=== PATIENT | female | born 1940 | race Caucasian/White ===

== ENCOUNTER → 2020-01-18 14:36 | Outpatient (BNVA) | payer MEDICARE, SELFPAY | PROVIDERS: Family Provider Internal Medicine; PCP Internal Medicine; Visit Provider Nurse Practitioner Family | DX: R09.81 Nasal congestion (principal); R50.9 Fever, unspecified; R53.83 Other fatigue; Z11.59 Encounter for screening for other viral diseases | CPT/HCPCS: 87635 ==

== ENCOUNTER 2021-07-03 13:23 | Emergency (ER) | payer MEDICARE, SELFPAY ==
[2021-07-03 14:12] VITALS: BP 152/83; PULSE 87; RESP 18; TEMP 37.1; O2SAT 99; BMI 21.7
--- NOTE | 2021-07-03 14:20 | US_ITS ---
WS: [id number] RIGHT UPPER QUADRANT ULTRASOUND HISTORY: pain COMPARISON: None available. Liver: 12.9 cm in length. Normal size liver. No bile duct dilatation or mass. Portal Vein: Normal hepatopetal flow with monophasic waveform. Gallbladder: Well distended gallbladder. There is an echogenic focus adherent to the gallbladder wall measuring 1.3 cm. There is no shadowing and this focus does not move with patient positioning. CBD: 0.5 cm Pancreas: Normal size and echogenicity. Right kidney: 8.7 cm in length. Normal size and echogenicity. No hydronephrosis or mass. Aorta and IVC: Unremarkable abdominal aorta and IVC. No ascites. US/US gall bladder 80713 IMPRESSION: 1. Echogenic focus within the gallbladder lumen adherent to the wall measures 1.3 cm. Differential includes gallbladder polyp and gallstone adherent to the w all. As there is no shadowing this is probably a polyp. Due to its large size s hort-term ultrasound follow-up in 3-4 months versus surgical removal should be considered. 2. No bile duct dilatation.
--- NOTE | 2021-07-03 14:21 | W.ED.ABDPA2 ---
HPI - Abdominal Pain General: Chief Complaint: Abdominal Pain Stated Complaint: Gallbalder Pain History of Present Illness: HPI narrative: Patient seen by Dr. Causey at urgent care this morning and was sent over for lab work and a gallbladder ultrasound due to right upper quadrant pain and diarrhea patient no acute distress.. He has a history of gallbladder stones. Patient's been having diarrhea for the last couple weeks at least. Had multiple bouts yesterday. PFSH ED PFSH: Medical History (Updated 07/03/21 @ 13:11 by Milan Causey MD) Chronic diarrhea History of gallstones RUQ abdominal pain Social History Smoking and tobacco status: former smoker Alcohol intake: never Course Vital Signs: Vital signs: Vital Signs Temperature 98.7 F 07/03/21 14:12 Pulse Rate 87 07/03/21 14:12 Respiratory Rate 18 07/03/21 14:12 Blood Pressure 152/83 07/03/21 14:12 Pulse Oximetry 99 07/03/21 14:12 Coding Level of Care Code ED Equipment Processer Storage for Giorgio Bragg
[2021-07-03 15:21] LABS: Basophils % 0.3 %; Eosinophils % 0.4 %; Hematocrit 47.4 % (37.0-47.0); Hemoglobin 15.1 g/dL (11.5-15.3); Lymphocytes # 0.9 10^3/uL (0.8-4.8); Lymphocytes % 11.7 %; Mean Corpuscular HGB Conc 31.9 g/dL (30.0-36.0); Mean Corpuscular Hemoglobin 29.5 pg (28.0-34.0); Mean Corpuscular Volume 92.8 fl (81-99); Mean Platelet Volume 12.5 fL (7.4-10.4); Monocytes # 0.9 10^3/uL (0.2-0.9); Monocytes % 11.2 %; Neutrophils # 5.84 10^3/uL (1.8-7.7); Neutrophils % 76.3 %; Nucleated Red Blood Cells % 0 %; Platelet Count 207 10^3/cmm (130-400); Red Blood Count 5.11 10^6/uL (4.1-5.3); Red Cell Distribution Width 11.9 % (12.1-15.1); White Blood Count 7.7 10^3/uL (4.0-10.0)
[2021-07-03 15:38] LABS: Alanine Aminotransferase 12 U/L (0-33); Alkaline Phosphatase 96 IU/L (35-105); Anion Gap 15.9 (5-19); Aspartate Amino Transferase 19 U/L (0-32); Blood Urea Nitrogen 16 mg/dL (8-23); Carbon Dioxide 25 mmol/L (22-29); Chloride 100 mmol/L (98-107); Creatinine Clr Calc Pharmacy 43.8681; Globulin 3.1 g/dL (1.3-4.6); Glucose 103 mg/dL (65-115); Osmolality Calculated 285 mOsm/kg (285-295); Potassium 3.9 mmol/L (3.5-5.1); Sodium 137 mmol/L (136-145); Total Bilirubin 0.7 mg/dL (0.15-1.2); Total Protein 7.1 g/dL (6.6-8.7)
--- NOTE | 2021-07-04 10:48 | DCPLANNER ---
Addendum entered by Padmini Esteves 07/11/21 12:52: Patient had a follow up appointment scheduled with general surgery on 07.08.21 - patient did attend appointment. Original Note: global account manager had message to schedule a follow up appointment for patient with general surgery. global account manager emailed patients information to Malka Lyle and Yojana at [facility] General Surgery. Patients information will be printed and reviewed. Clinic will call patient with appointment information.
== END 2021-07-03 15:21 ==
PROVIDERS: Nurse Practitioner Family; Emergency Provider Family Medicine; PCP Internal Medicine
DX: R10.11 Right upper quadrant pain (principal); Z53.21 Procedure and treatment not carried out due to patient leaving prior to being seen by health care provider; Z87.19 Personal history of other diseases of the digestive system; Z87.891 Personal history of nicotine dependence
CPT/HCPCS: 36415; 76705; 80053; 85025; 99282

== ENCOUNTER → 2021-07-08 10:01 | Outpatient (BNVA) | payer MEDICARE, SELFPAY | PROVIDERS: PCP Internal Medicine; Referring Provider Nurse Practitioner Family; Visit Provider Surgery | DX: Z20.822 Contact with and (suspected) exposure to COVID-19 (principal) | CPT/HCPCS: 87635 ==

== ENCOUNTER 2021-07-10 11:19 | Outpatient (CLI) | payer MEDICARE, SELFPAY | END 2021-07-10 11:20 | disposition home or self-care (01) | LOC: LAB 11:23 | PROVIDERS: Visit Provider Surgery | DX: K52.9 Noninfective gastroenteritis and colitis, unspecified (principal) | CPT/HCPCS: 83630; 87177; 87209; 87493; 87506 ==

== ENCOUNTER → 2021-08-19 09:36 | Outpatient (BNVA) | payer MEDICARE, SELFPAY | PROVIDERS: Visit Provider Surgery | DX: R10.11 Right upper quadrant pain (principal); Z20.822 Contact with and (suspected) exposure to COVID-19 | CPT/HCPCS: 87635 ==

== ENCOUNTER 2021-08-22 05:58 | Day surgery (SDC) | payer MEDICARE, SELFPAY ==
[2021-08-21 09:51] VITALS: BMI 19.2
[2021-08-22] VITALS (8 sets, daily range): BP systolic 123–182; BP diastolic 62–83; PULSE 60–87; RESP 16–18; TEMP 36.2–36.5; O2SAT 98–100
[2021-08-22] MEDS: sodium chloride 0.9% 1,000 ML 30 ML IV (06:43)
--- NOTE | 2021-08-22 06:52 | W.PM.OPSFHP ---
Same Day Surgery H&P Indication for Procedure/HPI DATE OF PROCEDURE: August 22, 2021 CHIEF COMPLAINT/INDICATIONFOR SURGICAL PROCEDURE: cholecystectomy PREOP DIAGNOSIS: inguinal hernia PLANNED PROCEDURE: Operation Date: 08/22/21 07:00 Proposed Procedures p Laparoscopic Cholecystectomy 07391/r10.11(Not Applicable) - Sanju Wu MD Medications/Allergies* Home Medications Medication Instructions Recorded Confirmed Type No Known Home Medications 08/22/21 08/22/21 History Allergies/Adverse Reactions Allergy/AdvReac Type Severity Reaction Status Date / Time vaccine adjuvant system, Allergy Unknown Unknown Verified 08/21/21 09:48 AS01B liposomal bismuth subsalicylate Allergy Unknown Verified 08/21/21 09:48 [From Pepto-Bismol] erythromycin base Allergy ADR-Vomitin Verified 08/22/21 06:45 g metronidazole [From Flagyl] Allergy Unknown Verified 08/21/21 09:48 Penicillins Allergy Unknown Verified 08/21/21 09:48 Tetracyclines Allergy Unknown Verified 08/21/21 09:48 Current Medications: Generic Name Dose Route Start Last Admin Trade Name Freq PRN Reason Stop Dose Admin Sodium Chloride 1,000 mls @ 30 mls/hr 08/22/21 06:15 08/22/21 06:43 Sodium Chloride 0.9% IV 08/23/21 06:14 30 mls/hr .Q24H BORIS Administration Pertinent History/Comorbid Conditions* Medical History (Updated 07/08/21 @ 09:43 by Sanju Wu MD) Chronic diarrhea Surgical History (Updated 07/08/21 @ 09:43 by Sanju Wu MD) History of ankle surgery 1997 History of 1977 History of D&C 1976 History of oophorectomy 1989 Social History Alcohol intake: never Pertinent Exam Findings alert, oriented x 3 and regular rate & rhythm Recommendations Surgery/Procedure today Coding Level of Care Code Acute Software Quality Automation Engineer for Chg Yemi
[2021-08-22] MEDS: levofloxacin-dextrose 5 % 500 MG/100 ML PREMIX 100 MG IV (07:00)
--- NOTE | 2021-08-22 07:22 | ANES.PREANE2 ---
Pre-Anesthetic Assessment Height/Weight: Height 1.57 m Weight 47.627 kg Temp Pulse Resp BP 97.7 F 79 16 182/82 08/22/21 06:22 08/22/21 06:22 08/22/21 06:22 08/22/21 06:22 Preop Diagnosis: inguinal hernia Operation Date: 08/22/21 07:00 Proposed Procedures p Laparoscopic Cholecystectomy 26609/r10.11(Not Applicable) - Sanju Wu MD Familial anesthetic complications: None Was Beta Roby taken within 24 hours: N/A Was Clonidine taken within 24 hours: N/A Last intake: Intake Last Liquid Date 08/21/21 Last Liquid Time 21:00 Last Solid Date 08/21/21 Last Solid Time 16:00 Social No alcohol and No tobacco Exam alert, oriented x 3, clear to auscultation bilaterally and regular rate & rhythm Airway Submandibular: within normal limits Cervical ROM: within normal limits Mallampati: Class II Dentition: chipped History/ROS No significant history except as noted Anesthetic Plan ASA status: 2 Anesthesia: General Risk of > 500 ml blood loss (7ml/kg in children): No Medications/Allergies Home Medications Medication Instructions Recorded Confirmed Last Taken Type No Known Home Medications 08/22/21 08/22/21 Unknown History Allergies Allergy/AdvReac Type Severity Reaction Status Date / Time vaccine adjuvant system, Allergy Unknown Unknown Verified 08/21/21 09:48 AS01B liposomal bismuth subsalicylate Allergy Unknown Verified 08/21/21 09:48 [From Pepto-Bismol] erythromycin base Allergy ADR-Vomitin Verified 08/22/21 06:45 g metronidazole [From Flagyl] Allergy Unknown Verified 08/21/21 09:48 Penicillins Allergy Unknown Verified 08/21/21 09:48 Tetracyclines Allergy Unknown Verified 08/21/21 09:48 Current Medications Generic Name Dose Route Start Last Admin Trade Name Freq PRN Reason Stop Dose Admin Sodium Chloride 1,000 mls @ 30 mls/hr 08/22/21 06:15 08/22/21 06:43 Sodium Chloride 0.9% IV 08/23/21 06:14 30 mls/hr .Q24H BORIS Administration PFSH Anesthesia Medical History Chronic diarrhea Surgical History History of ankle surgery 1997 History of 1977 History of D&C 1976 History of oophorectomy 1989 Social History Alcohol intake: never Data Anesthesia Cardiac Studies: No Data to Display
[2021-08-22] MEDS: ondansetron 2 mg/ML SDV 2 mL 4 MG IVP (08:12)
--- NOTE | 2021-08-22 10:54 | P.OP_ITS ---
Operative Report Date of procedure: August 22, 2021 Pre-op diagnosis: cholelithiasis Post-op diagnosis: same Procedure done: Laparoscopic cholecystectomy Specimens removed/disposition: Gallbladder Surgeon: Sanju Wu Anesthesia: General Condition: stable Disposition: PACU Procedure: The patient was taken to the operating room and was intubated under general anesthesia. After the antibiotic had been administered, the abdomen was prepped and draped in a sterile manner. Using a #15 blade, a 1 centimeter infraumbilical curvilinear incision was made and using an open Tra technique the peritoneal cavity was entered. A 10 millimeter port was placed and 15 millimeters of pneumoperitoneum was created. A 10 millimeter, 30 degrees scope was then introduced. Three 5 millimeter ports were placed in the epigastric, midclavicular and the anterior axillary line two fingerbreadths below the costal margin on the right side under the direct visualization. Ratcheted forceps were introduced into the lateral most port and was used to retract the fundus of the gallbladder cephalad and using forceps the infundibulum of the gallbladder was retracted laterally. Using L-hook cautery the peritoneum overlying the Calot's triangle was opened medially and laterally until the cystic duct and the cystic artery were skeletonized. Dissection was carried along the body of the gallbla dder and after ensuring critical view of safety, 4 clips applied on the cystic duct and 3 clips applied on the cystic artery and cut leaving, 3 clips on the remaining portion of the duct and 2 clips on the remaining portion of the artery. The rest of the gallbladder was dissected off the liver using L-hook cautery. There was no bleeding or bile leaking noted from the gallbladder fossa and the clips appeared to be in place. An EndoCatch bag was introduced to remove the gallbladder. All the ports were removed under direct visualization and there was no bleeding noted from the port sites. The fascia of the umbilicus was closed using [id number] 0 Vicryl sutures and the subcutaneous tissue was approximated using 3-0 Vicryl sutures. The skin at all four ports were closed using 4-0 Monocryl and Dermabond. A total of 10 millimeters of 0.5% Marcaine was infiltrated around the port sites. The patient was stable throughout the procedure.
--- NOTE | 2021-08-22 14:53 | ANE.PACU2 ---
Inpatient post-anesthesia follow up: Airway intact: Yes Vital signs: Temperature 97.2 F Pulse Rate 87 Respiratory Rate 16 Blood Pressure 146/76 Pulse Oximetry 100 Oxygen Delivery Me thod Room Air Oxygen Flow Rate 6 Fraction of Inspir ed Oxygen Hydration adequate: Yes Nausea and vomiting: No Pain level: 3 Mental status: Baseline
== END 2021-08-22 09:10 | disposition home or self-care (01) ==
PROVIDERS: Visit Provider Surgery
PROC: 0FT44ZZ Resection of Gallbladder, Percutaneous Endoscopic Approach (ICD-10-PCS; CPT 47562; principal; 2021-08-22 07:00)
DX: K81.1 Chronic cholecystitis (principal)
CPT/HCPCS: 47562; 88304; J1100; J1956; J2405; J2704; J3010; J3490; J7030

== ENCOUNTER 2021-12-04 19:03 | Emergency (ER) | payer MEDICARE, SELFPAY ==
--- NOTE | 2021-12-04 19:05 | XRR_ITS ---
PROCEDURE INFORMATION: Exam: XR Chest Exam date and time: 12/04/2021 7:54 PM Age: 81 years old Clinical indication: Dyspnea; Patient HX: Covid+; Additional info: SOB TECHNIQUE: Imaging protocol: Radiologic exam of the chest. Views: 1 view. COMPARISON: ES surgery / GI images 08/22/2021 4:35 AM FINDINGS: Lungs: Unremarkable. No consolidation. Pleural spaces: Unremarkable. No pleural effusion. No pneumothorax. Heart/Mediastinum: Unremarkable. No cardiomegaly. Bones/joints: Unremarkable. XR/XR chest 1V portable [id number] IMPRESSION: No acute findings.
[2021-12-04 19:59] VITALS: BP 128/78; PULSE 97; RESP 16; TEMP 38.1; O2SAT 96
--- NOTE | 2021-12-04 21:05 | ED_ITS ---
Documented by User: Sammy Rey MD 12/04/21 22:56 HPI - General Adult General: Chief complaint: Syncope Stated complaint: covid + Time Seen by Provider: 12/04/21 21:02 History of Present Illness: Patient is an 81-year-old female with a history of 07/2021 for chronic cholecystitis who presents emergency room after an episode of syncope in the setting of recent fever x3 days. Patient tells me that she has been having on and off fever for the last 3 days with generalized weakness. Patient denies any cough, runny nose sore throat, abdominal pain, nausea/vomiting or diarrhea. Earlier today around 2:00 while patient was standing from the kitchen when she had an episode of lightheadedness and syncope. Patient denies any associate chest pain, shortness breath or palpitation prior to the episode of syncope. Shortly after the syncope, patient found herself on the ground. Patient cannot recall what happened. Patient has not had any prior episode of syncope. Patient tells me that she did an at home COVID test that was positive. Patient again denies any exertional chest pain, pleuritic chest pain, stabbing chest pain, nausea/vomiting, diarrhea melena or hematochezia. Patient denies any decrease in recent p.o. intake. Onset:5 hrs ago Duration:1 minute Location:home Severity:moderate Associated symptoms: Reports malaise; Deny chest pain, dyspnea, nausea, rash, palpitations or vomiting Review of Systems Const: Reports: fever(s) and malaise; Denies: chills Eyes: Denies: change in vision ENMT: Denies: mouth pain Card: Denies: chest pain or palpitations Resp: Denies: dyspnea or non-productive cough GI: Denies: abdominal pain, nausea, vomiting or diarrhea : Denies: dysuria Musc: Denies: extremity pain Skin/Breast: Denies: rash or new lesions Neuro: Reports: other (+syncope); Denies: weakness in extremities Psych: Reports: other (Normal mood) Ang/Lymph: Denies: easy bruising PFS ED PFSH: Medical History Chronic diarrhea Surgical History History of ankle surgery 1998 History of 1977 History of D&C 1976 History of oophorectomy 1989 Status post laparoscopic cholecystectomy (08/22/21) Social History Smoking and tobacco status: former smoker Alcohol intake: never Physical Exam Const: COMMON NORMALS: alert HENMT: COMMON NORMALS: atraumatic HEAD & SCALP: atraumatic MOUTH: moist mucous membranes not abnormal Eye: COMMON NORMALS: EOMs intact bilaterally and conjunctivae normal CONJUNCTIVA: Yes conjunctivae normal Neck/C-Spine: COMMON NORMALS: full ROM and supple Resp: COMMON NORMALS: normal respiratory effort and clear to auscultation bilaterally AUSCULTATION: clear to auscultation bilaterally Cardio: COMMON NORMALS: regular rate RATE: regular rate GI: COMMON NORMALS: Soft to palpation and non-tender PALPATION: Yes Soft to palpation Extremity: COMMON NORMALS: full ROM Neuro: SENSORIUM/ORIENTATION: Yes alert MOTOR EXAM: No Abnormal motor s trength present and Other motor observations present (no focal motor deficits) OTHER: Mental status? Awake, alert, and oriented to self, year, month, location, and situation.? Following simple axial and appendicular commands.? Has appropriate fund of knowledge, comprehension, and insight.? Able to recall and understands pertinent aspects of medical history and current treatment status.? ? Language? Speech is fluent without word-finding difficulties.? Intact naming, expression, receptionist nurse, and repetition.? ? Cranial nerves? 2,3,4,6: PERRL, EOMI with no nystagmus. 5: Intact sensation to light touch, symmetric? 7: Smile symmetrical, no facial droop.? 8: Hearing grossly intact.? 9,10: Normal palate movement.? 11: Normal strength in trapezius bilaterally 12: Tongue protrudes midline.? ? Motor examination? Normal bulk & tone. Strength as follows (R/L): Delts (5/5), Biceps (5/5), Triceps (5/5), Wrist ext (5/5), hip flexors (5/5), plantarflexors (5/5), dorsiflexors (5/5). Sensation? Light Touch: Grossly intact and equal in upper and lower extremities bilaterally? Romberg: Negative.? Distal joint position sense intact ? Coordination? [id number]-rb-yxfw-finger movements intact without dysmetria or past-pointing.? Rapid fingertaps: preserved amplitude without decriment.? No tremor, myoclonus or truncal ataxia.? ? Gait/stance? Steady, normal narrow base gait with appropriate arm swing and turning.? Tandem gait without hesitation or loss of balance. Psych: COMMON NORMALS: speech normal SPEECH: Yes normal speech MOOD & AFFECT: Yes euthymic mood Course Vital Signs: Vital signs: Vital Signs Temperature 98.6 F 12/04/21 23:25 Pulse Rate 71 12/04/21 23:25 Respiratory Rate 16 12/04/21 23:25 Blood Pressure 118/67 12/04/21 23:25 Pulse Oximetry 98 12/04/21 23:25 [facility] - General Adult Medical Decision Making 81-year-old female history of recent cholecystectomy 3 months ago presenting to the emergency room with concerns of syncope and collapse which occurred 5 hours ago in the setting of fever x3 days. Patient was COVID-positive at home. On exam, patient is febrile to 100.5 degrees. Rest of exam within normal limit. Patient is not tachycardic currently. X-ray chest clear. Patient received 500 cc of IVF, 1 g of Tylenol with improvement of fever. Initial EKG not showing signs of ischemia. Troponin within normal limit. Pending repeat troponin and reassessment. Case signed out to Dr. Lopez pending reassessment, repeat troponin and CT head report. Lab Data : 12/04/21 21:10 12/04/21 21:10 Radiology Impressions Chest X-Ray 12/04/21 19:05 IMPRESSION: No acute findings. Head CT 12/04/21 21:19 IMPRESSION: Negative for intracranial hemorrhage or mass effect. Laboratory Results WBC 5.1 10^3/uL (4.0-10.0) 12/04/21 21:10 RBC 4.76 10^6/uL (4.1-5.3) 12/04/21 21:10 Hgb 14.1 g/dL (11.5-15.3) 12/04/21 21:10 Hct 42.6 % (37.0-47.0) 12/04/21 21:10 MCV 89.5 fl (81-99) 12/04/21 21:10 MCH 29.6 pg (28.0-34.0) 12/04/21 21:10 MCHC 33.1 g/dL (30.0-36.0) 12/04/21 21:10 RDW 12.5 % (12.1-15.1) 12/04/21 21:10 Plt Count 106 10^3/cmm (130-400) L 12/04/21 21:10 MPV 14.0 fL (7.4-10.4) H 12/04/21 21:10 Neut % (Auto) 83.1 % 12/04/21 21:10 Lymph % (Auto) 7.7 % 12/04/21 21:10 [place] % (Auto) 8.4 % 12/04/21 21:10 Eos % (Auto) 0.0 % 12/04/21 21:10 Baso % (Auto) 0.2 % 12/04/21 21:10 Neut # (Auto) 4.23 10^3/uL (1.8-7.7) 12/04/21 21:10 Lymph # (Auto) 0.4 10^3/uL (0.8-4.8) L 12/04/21 21:10 [place] # (Auto) 0.4 10^3/uL (0.2-0.9) 12/04/21 21:10 Eos # (Auto) 0.0 10^3/uL (0.0-0.8) 12/04/21 21:10 Baso # (Auto) 0.0 10^3/uL (0.0-0.1) 12/04/21 21:10 Nucleated RBC % (auto) 0 % 12/04/21 21:10 Nucleated RBCs # 0.0 /100WBC 12/04/21 21:10 Sodium 134 mmol/L (136-145) L 12/04/21 21:10 Potassium 3.9 mmol/L (3.5-5.1) 12/04/21 21:10 Chloride 95 mmol/L (98-107) L 12/04/21 21:10 Carbon Dioxide 26 mmol/L (22-29) 12/04/21 21:10 Anion Gap 16.9 (5-19) 12/04/21 21:10 BUN 13 mg/dL (8-23) 12/04/21 21:10 Creatinine 0.6 mg/dL (0.5-0.9) 12/04/21 21:10 GFR Calculation Not Reportable 12/04/21 21:10 Glucose 122 mg/dL (65-115) H 12/04/21 21:10 Calculated Osmolality 279 mOsm/kg (285-295) L 12/04/21 21:10 Calcium 9.1 mg/dL (8.5-10.5) 12/04/21 21:10 Troponin T Baseline 8 ng/L (0-10) 12/04/21 21:10 Troponin T 120 Minute 8.30 ng/L (0-10) 12/04/21 23:10 Delta Troponin T 0.30 ABS# (0-10) 12/04/21 23:10 Imaging Data Other Imaging: Radiologist's impression: [employer] [address] XRay Report Signed Patient: Brenda Kaba Unit #: [id number] : 1940 Age/Sex: 81 / F ADM Date: 12/04/21 Loc: ER Room/Bed: Attending Dr: Ordering Provider/Ordering MD: Violeta Lopez MD Date of Service: 12/04/21 Procedure(s): XR chest 1V portable [id number] Accession Number(s): [id number] Report Number: [id number] PROCEDURE INFORMATION: Exam: XR Chest Exam date and time: 12/04/2021 7:54 PM Age: 81 years old Clinical indication: Dyspnea; Patient HX: Covid+; Additional info: SOB TECHNIQUE: Imaging protocol: Radiologic exam of the chest. Views: 1 view. COMPARISON: ES surgery / GI images 08/22/2021 4:35 AM FINDINGS: Lungs: Unremarkable. No consolidation. Pleural spaces: Unremarkable. No pleural effusion. No pneumothorax. Heart/Mediastinum: Unremarkable. No cardiomegaly. Bones/joints: Unremarkable. XR/XR chest 1V portable [id number] IMPRESSION: No acute findings. ? Dictated By: Bonilla Peck MD Signed By: Bonilla Peck MD Signed Date/Time: 12/04/212042 DD/ 1954 EKG Data EKG 2: Computer generated interpretation: Chest X-Ray 12/04/21 19:05 IMPRESSION: No acute findings. Head CT 12/04/21 21:19 IMPRESSION: Negative for intracranial hemorrhage or mass effect. Discharge Plan Discharge Patient Disposition: Home Clinical Impression: COVID-19, Vasovagal syncope Condition: Stable Prescriptions: No Action cephalexin 250 mg capsule 250 mg PO QID 7 Days Qty: 28 0RF mupirocin 2 % ointment 1 applic topical BID Qty: 22 0RF Discharge Orders: Discharge ED (Routine); Ordered 12/05/21 Ordered By: Mars Brennan Discharge Diet: Usual diet Discharge Activity: Increase activity as tolerated Patient Instructions: How to Recover from COVID-19 at Home (ED) Activity Restrictions/Additional Instructions: Drink plenty of fluids. Use acetaminophen or ibuprofen as needed for pain and fever. It is very important to stay well-hydrated. Follow-up with primary care for further instruction. Return to ER for increased difficulty breathing, chest pain or new concerns. Sign Out Sign Out Data: Patient Sign Out occurred on 12/04/21 at 23:06. Patient's care was discussed, and care was transferred from to Mars Brennan. Post-Handoff Eval: Patient was alert and oriented. Patient drink plenty of fluids for us. Patient was able ambulate with minimal to no assist. Repeat troponin showed no changes. Reviewed exam with patient with recommendations for treatment and follow-up with primary care. Discussed need for return with increased shortness of breath and chest pain. Patient reported understanding and agreed to plan. Coding Level of Care Code ED Sidewalk Repairer for Chg Fwd Exam Comprehensive Documented by User: JUSTINE Gamez 12/05/21 00:20 HPI - General Adult General: Chief complaint: Syncope Stated complaint: covid + Time Seen by Provider: 12/04/21 21:02 [facility] ED PFSH: Medical History Chronic diarrhea Surgical History History of ankle surgery 1997 History of 1977 History of D&C 1976 History of oophorectomy 1989 Status post laparoscopic cholecystectomy (08/22/21) Social History Smoking and tobacco status: former smoker Alcohol intake: never Course Vital Signs: Vital signs: Vital Signs Temperature 98.6 F 12/04/21 23:25 Pulse Rate 71 12/04/21 23:25 Respiratory Rate 16 12/04/21 23:25 Blood Pressure 118/67 12/04/21 23:25 Pulse Oximetry 98 12/04/21 23:25 [facility] - General Adult Lab Data : 12/04/21 21:10 12/04/21 21:10 Radiology Impressions Chest X-Ray 12/04/21 19:05 IMPRESSION: No acute findings. Head CT 12/04/21 21:19 IMPRESSION: Negative for intracranial hemorrhage or mass effect. Laboratory Results WBC 5.1 10^3/uL (4.0-10.0) 12/04/21 21:10 RBC 4.76 10^6/uL (4.1-5.3) 12/04/21 21:10 Hgb 14.1 g/dL (11.5-15.3) 12/04/21 21:10 Hct 42.6 % (37.0-47.0) 12/04/21 21:10 MCV 89.5 fl (81-99) 12/04/21 21:10 MCH 29.6 pg (28.0-34.0) 12/04/21 21:10 MCHC 33.1 g/dL (30.0-36.0) 12/04/21 21:10 RDW 12.5 % (12.1-15.1) 12/04/21 21:10 Plt Count 106 10^3/cmm (130-400) L 12/04/21 21:10 MPV 14.0 fL (7.4-10.4) H 12/04/21 21:10 Neut % (Auto) 83.1 % 12/04/21 21:10 Lymph % (Auto) 7.7 % 12/04/21 21:10 [place] % (Auto) 8.4 % 12/04/21 21:10 Eos % (Auto) 0.0 % 12/04/21 21:10 Baso % (Auto) 0.2 % 12/04/21 21:10 Neut # (Auto) 4.23 10^3/uL (1.8-7.7) 12/04/21 21:10 Lymph # (Auto) 0.4 10^3/uL (0.8-4.8) L 12/04/21 21:10 [place] # (Auto) 0.4 10^3/uL (0.2-0.9) 12/04/21 21:10 Eos # (Auto) 0.0 10^3/uL (0.0-0.8) 12/04/21 21:10 Baso # (Auto) 0.0 10^3/uL (0.0-0.1) 12/04/21 21:10 Nucleated RBC % (auto) 0 % 12/04/21 21:10 Nucleated RBCs # 0.0 /100WBC 12/04/21 21:10 Sodium 134 mmol/L (136-145) L 12/04/21 21:10 Potassium 3.9 mmol/L (3.5-5.1) 12/04/21 21:10 Chloride 95 mmol/L (98-107) L 12/04/21 21:10 Carbon Dioxide 26 mmol/L (22-29) 12/04/21 21:10 Anion Gap 16.9 (5-19) 12/04/21 21:10 BUN 13 mg/dL (8-23) 12/04/21 21:10 Creatinine 0.6 mg/dL (0.5-0.9) 12/04/21 21:10 GFR Calculation Not Reportable 12/04/21 21:10 Glucose 122 mg/dL (65-115) H 12/04/21 21:10 Calculated Osmolality 279 mOsm/kg (285-295) L 12/04/21 21:10 Calcium 9.1 mg/dL (8.5-10.5) 12/04/21 21:10 Troponin T Baseline 8 ng/L (0-10) 12/04/21 21:10 Troponin T 120 Minute 8.30 ng/L (0-10) 12/04/21 23:10 Delta Troponin T 0.30 ABS# (0-10) 12/04/21 23:10 EKG Data EKG 2: EKG interpretation date: 12/04/21 EKG interpretation time: 23:53 Interpretation: EKG shows a sinus rhythm with a regular rate at 71 bpm. No significant changes was noted from prior exam. No ST elevation or ectopy was noted. Computer generated interpretation: Chest X-Ray 12/04/21 19:05 IMPRESSION: No acute findings. Head CT 12/04/21 21:19
--- NOTE | 2021-12-04 21:19 | CTR_ITS ---
PROCEDURE INFORMATION: Exam: CT Head Without Contrast Exam date and time: 12/04/2021 10:16 PM Age: 81 years old Clinical indication: Altered mental status/memory loss; Patient HX: Covid positive-- AMS; Additional info: Fall TECHNIQUE: Imaging protocol: Computed tomography of the head without contrast. Radiation optimization: All CT scans at this facility use at least one of these dose optimization techniques: automated exposure control; mA and/or kV adjustment per patient size (includes targeted exams where dose is matched to clinical indication); or iterative reconstruction. COMPARISON: No relevant prior studies available. RADIATION DOSE METRICS: Total DLP (mGy-cm): 716.31 FINDINGS: Brain: Mild diffuse white matter disease likely reflecting chronic microvascular ischemic changes. Cerebral ventricles: No ventriculomegaly. Paranasal sinuses: Visualized sinuses are unremarkable. No fluid levels. Mastoid air cells: Visualized mastoid air cells are well aerated. Bones/joints: Unremarkable. No acute fracture. Soft tissues: Unremarkable. CT/CT head wo con* [id number] IMPRESSION: Negative for intracranial hemorrhage or mass effect.
[2021-12-04] MEDS: acetaminophen 500 mg Tablet 1000 MG PO (21:22)
[2021-12-04] MEDS: sodium chloride 0.9% 500 ML IV (21:22)
[2021-12-04 21:47] LABS: Anion Gap 16.9 (5-19); Blood Urea Nitrogen 13 mg/dL (8-23); Calcium 9.1 mg/dL (8.5-10.5); Carbon Dioxide 26 mmol/L (22-29); Chloride 95 mmol/L (98-107); Glucose 122 mg/dL (65-115); Osmolality Calculated 279 mOsm/kg (285-295); Potassium 3.9 mmol/L (3.5-5.1); Sodium 134 mmol/L (136-145); Troponin(5th) Baseline 8 ng/L (0-10)
[2021-12-04 22:08] LABS: Basophils % 0.2 %; Hematocrit 42.6 % (37.0-47.0); Hemoglobin 14.1 g/dL (11.5-15.3); Lymphocytes # 0.4 10^3/uL (0.8-4.8); Lymphocytes % 7.7 %; Mean Corpuscular HGB Conc 33.1 g/dL (30.0-36.0); Mean Corpuscular Hemoglobin 29.6 pg (28.0-34.0); Mean Corpuscular Volume 89.5 fl (81-99); Monocytes # 0.4 10^3/uL (0.2-0.9); Monocytes % 8.4 %; Neutrophils # 4.23 10^3/uL (1.8-7.7); Neutrophils % 83.1 %; Nucleated Red Blood Cells % 0 %; Platelet Count 106 10^3/cmm (130-400); Red Blood Count 4.76 10^6/uL (4.1-5.3); Red Cell Distribution Width 12.5 % (12.1-15.1); White Blood Count 5.1 10^3/uL (4.0-10.0)
--- NOTE | 2021-12-04 23:03 | ECG_ITS ---
[facility] Test Date: 2021-12-04 Pat Name: Brenda Kaba Department: Room: Gender: Female Certification Engineer: : [id number] Requested By: Sammy Rey Order Number: [id number] Reading MD: Kelvin Llanos M.D. Measurements Intervals Miles Rate: 71 P: 65 WA: 147 QRS: 71 QRSD: 85 T: 29 QT: 394 QTc: 429 Interpretive Statements SINUS RHYTHM NONSPECIFIC T-WAVE ABNORMALITY No previous ECG available for comparison Electronically Signed On 12-05-2021 22:34:11 CDT by Kelvin Llanos M.D. [email or web address]
[2021-12-04 23:25] VITALS: BP 118/67; PULSE 71; RESP 16; TEMP 37; O2SAT 98
[2021-12-05 00:31] VITALS: RESP 16; O2SAT 98
== END 2021-12-05 00:32 | disposition home or self-care (01) ==
PROVIDERS: Emergency Medicine; Emergency Provider Nurse Practitioner Family
DX: U07.1 COVID-19 (principal); R55 Syncope and collapse; Z87.891 Personal history of nicotine dependence
CPT/HCPCS: 36415; 70450; 71045; 80048; 84484; 85025; 93005; 99284; J7040